=== PATIENT | female | born 1995 | race American Indian/Alaskan Native ===

== ENCOUNTER 2019-04-06 10:05 | Emergency (ER) | payer BC ==
[2019-04-06 10:14] VITALS: BP 139/91
[2019-04-06] MEDS ORDERED: ANTIVERT PO ONE (11:02)
[2019-04-06] MEDS ORDERED: ULTRAM PO ONE (11:02)
[2019-04-06 12:38] LABS: Bacteria,Urine 1+ /HPF (Negative); Bilirubin,Urine NEG (Negative); Blood,Urine SM (Negative); Color,Urine Straw (Yellow); Protein,Urine <15 mg/dL mg/dL (Negative); Urobilinogen,Urine < 2.0 mg/dL (<2.0); WBC,Urine < 1.0 /HPF (0.0-6.0)
[2019-04-06 12:39] LABS: HCG Qualitative,Urine Negative (Negative)
[2019-04-06 12:49] LABS: RBC,Urine < 1.0 /HPF (0.0-6.0)
--- NOTE | 2019-04-06 13:02 | Emergency Department Report ---
ED General Adult HPI - General Chief complaint: Pain General Stated complaint: POSS CONCUSSION/NERVE DAMAGE Time Seen by Provider: 04/06/19 10:48 Source: patient Mode of arrival: Ambulatory Limitations: No Limitations - History of Present Illness Initial comments: Patient is a 24-year-old female who is presenting with a headache. Patient has a history of postconcussive syndrome but started having this headache yesterday. Patient states of tight. Sensation at the top of the nose and her right cheek. Patient states his aching throbbing sensation. Patient states she has had some rhinorrhea and postnasal drip. Patient admits to some mild loose stool but no nausea vomiting fevers or chills at this time. Patient also states that she has had some spotting for the last 2 weeks as well. Patient is on control. Severity scale (0 -10): 7 - Related Data Previous Rx's Medication Instructions Recorded Last Taken Type DOXYCYCLINE Hyclate [Vibramycin 100 mg PO Q12HR #14 capsule 04/06/19 Unknown Rx CAP] Fluticasone [Flonase] 1 spray NS QDAY #1 bottle 04/06/19 Unknown Rx Ketorolac [Toradol] 10 mg PO Q6H PRN #12 tablet 04/06/19 Unknown Rx Meclizine [Antivert] 25 mg PO TID PRN #10 tablet 04/06/19 Unknown Rx Allergies Allergy/AdvReac Type Severity Reaction Status Date / Time Penicillins Allergy Hives Verified 04/06/19 10:06 ED Review of Systems ROS: Stated complaint: POSS CONCUSSION/NERVE DAMAGE Other details as noted in HPI Comment: All other systems reviewed and negative ED Past Medical Hx - Past Medical History Previous Medical History?: Yes Hx Asthma: Yes - Surgical History Past Surgical History?: No - Social History Smoking Status: Never Smoker - Medications Home Medications: Home Medications Medication Instructions Recorded Confirmed Last Taken Type DOXYCYCLINE Hyclate [Vibramycin 100 mg PO Q12HR #14 capsule 04/06/19 Unknown Rx CAP] Fluticasone [Flonase] 1 spray NS QDAY #1 bottle 04/06/19 Unknown Rx Ketorolac [Toradol] 10 mg PO Q6H PRN #12 tablet 04/06/19 Unknown Rx Meclizine [Antivert] 25 mg PO TID PRN #10 tablet 04/06/19 Unknown Rx ED Physical Exam - General Limitations: No Limitations General appearance: alert, in no apparent distress - Head Head exam: Present: atraumatic, normocephalic - Expanded Head Exam Expanded 1 - Tenderness with palpation without swelling or redness to the skin - Eye Eye exam: Present: normal appearance - ENT ENT exam: Present: mucous membranes moist - Neck Neck exam: Present: normal inspection - Respiratory Respiratory exam: Present: normal lung sounds bilaterally. Absent: respiratory distress - Cardiovascular Cardiovascular Exam: Present: regular rate, normal rhythm. Absent: systolic murmur, diastolic murmur, rubs, gallop - GI/Abdominal GI/Abdominal exam: Present: soft, normal bowel sounds - Extremities Exam Extremities exam: Present: normal inspection - Back Exam Back exam: Present: normal inspection - Neurological Exam Neurological exam: Present: alert, oriented X3 - Psychiatric Psychiatric exam: Present: normal affect, normal mood - Skin Skin exam: Present: warm, dry, intact, normal color. Absent: rash ED Course Vital Signs 04/06/19 04/06/19 10:13 11:12 Temperature 98.3 F Pulse Rate 68 Respiratory 18 18 Rate Blood Pressure 139/91 O2 Sat by Pulse 98 Oximetry ED Medical Decision Making - Lab Data Lab Results 04/06/19 Range/Units 12:03 Urine Color Straw (Yellow) Urine Turbidity Clear (Clear) Urine pH 7.0 (5.0-7.0) Ur Specific [place] 1.006 (1.003-1.030) Urine Protein <15 mg/dl (Negative) mg/dL Urine Glucose (UA) Neg (Negative) mg/dL Urine Ketones Neg (Negative) mg/dL Urine Blood Sm (Negative) Urine Nitrite Neg (Negative) Urine Bilirubin Neg (Negative) Urine Urobilinogen < 2.0 (<2.0) mg/dL Ur Leukocyte Esterase Neg (Negative) Urine WBC (Auto) < 1.0 (0.0-6.0) /HPF Urine RBC (Auto) < 1.0 (0.0-6.0) /HPF U Epithel Cells (Auto) 1.0 (0-13.0) /HPF Urine Bacteria (Auto) 1+ (Negative) /HPF Urine HCG, Qual Negative (Negative) - Medical Decision Making Patient to be started on doxycycline for sinus infection. Patient states she was treated for sinus infection with a Z-Rsata approximately 2 weeks ago and states that her symptoms may have come back. Regarding the patient's spotting the patient's urinalysis is within normal limits and she is not . Patient referred to [facility] for further management. Critical care attestation.: If time is entered above; I have spent that time in minutes in the direct care of this critically ill patient, excluding procedure time. ED Disposition Clinical Impression: DUB (dysfunctional uterine bleeding) Acute sinusitis Qualifiers: Sinusitis location: sphenoidal Recurrence: recurrent Qualified Code(s): J01.31 - Acute recurrent sphenoidal sinusitis Disposition: TO HOME OR SELFCARE Is pt being admited?: No Does the pt Need Aspirin: No Condition: Stable Instructions: Sinusitis (ED), Dysfunctional Uterine Bleeding (ED) Referrals: TR PITTMAN MD [Primary Care Provider] - 3-5 Days PITO SLOAN MD [Staff Physician] - 3-5 Days Time of Disposition: 13:02
== END 2019-04-06 13:09 | disposition home or self-care (01) ==
LOC: ED 10:05
DX: J01.90 Acute sinusitis, unspecified (principal); R19.7 Diarrhea, unspecified; N93.8 Other specified abnormal uterine and vaginal bleeding; J45.909 Unspecified asthma, uncomplicated; Z88.0 Allergy status to penicillin
CPT/HCPCS: 81001; 81025